=== PATIENT | male | born 1960 | race American Indian/Alaskan Native ===

== ENCOUNTER 2019-08-02 18:26 | Emergency (ER) | payer SELFPAY ==
--- NOTE | 2019-08-02 18:40 | Event Note ---
ED Screening Note Date of service: 08/02/19 Time: 18:38 ED Screening Note: 58 y o male presents to ed cc of toe pain s/p tire fell on toe yesterday This initial assessment/diagnostic orders/clinical plan/treatment(s) is/are subject to change based on patients health status, clinical progression and re- assessment by fellow clinical providers in the ED. Further treatment and workup at subsequent clinical providers discretion. Patient/guardian urged not to elope from the ED as their condition may be serious if not clinically assessed and managed. Initial orders include: xr toes
--- NOTE | 2019-08-02 19:39 | XRay Report ---
RIGHT TOES 3 VIEWS. INDICATION / CLINICAL INFORMATION: pain and swelling OF RT FOOT 2ND DIGIT COMPARISON: None available. FINDINGS: BONES / JOINT(S): Advanced DJD first metatarsophalangeal joint with associated hallux valgus. Mild er osion is also present raising the possibility of gout. The metatarsals are intact. Chronic boutonnier e type deformities of the digits limits evaluation. No gross fracture. SOFT TISSUES: No significant abnormality. ADDITIONAL FINDINGS: None. Signer Name: Isaac Jackson MD Signed: 08/02/2019 7:34 PM Workstation Name: [id number] [id number]
--- NOTE | 2019-08-02 20:51 | Emergency Department Report ---
ED Lower Extremity HPI - General Chief Complaint: Extremity Injury, Lower Stated Complaint: RT FOOT PAIN Time Seen by Provider: 08/02/19 20:43 Source: patient Mode of arrival: Ambulatory Limitations: No Limitations - History of Present Illness Initial Comments: Patient is 58 years old male with no significant past medical history. Patient presented to the ER complaining of right second toe pain since yesterday. Patient stated that a tire fell on his foot yesterday. Patient denied any other injuries. No fever or chills. MD Complaint: foot injury -: Last night Injury: Toes: Right Type of Injury: blunt Place: home Severity: moderate Severity scale (0 -10): 5 - Related Data Allergies Allergy/AdvReac Type Severity Reaction Status Date / Time No Known Allergies Allergy Unverified 08/02/19 18:29 ED Review of Systems ROS: Stated complaint: RT FOOT PAIN Other details as noted in HPI Comment: All other systems reviewed and negative Constitutional: denies: chills, fever Respiratory: denies: cough, shortness of breath Gastrointestinal: denies: abdominal pain, nausea Musculoskeletal: denies: back pain Neurological: denies: headache, weakness, numbness, paresthesias, confusion, abnormal gait ED Past Medical Hx - Past Medical History Previous Medical History?: Yes Additional medical history: Right inquinal hernia - Surgical History Past Surgical History?: Yes Additional Surgical History: Right inquinal hernia repair - Social History Smoking Status: Former Smoker Substance Use Type: Alcohol ED Physical Exam - General Limitations: No Limitations General appearance: alert, in no apparent distress - Head Head exam: Present: atraumatic, normocephalic, normal inspection - Eye Eye exam: Present: normal appearance - ENT ENT exam: Present: normal exam, normal orophraynx, mucous membranes moist - Neck Neck exam: Present: normal inspection, full ROM. Absent: tenderness, meningismus - Respiratory Respiratory exam: Present: normal lung sounds bilaterally - Cardiovascular Cardiovascular Exam: Present: regular rate, normal rhythm, normal heart sounds - GI/Abdominal GI/Abdominal exam: Present: soft. Absent: distended, tenderness, guarding, rebo und, rigid - Expanded Lower Extremity Exam Right Foot/Toe exam: Present: tenderness, swelling, ecchymosis, erythema. Absent: abrasion, laceration, deformity, crepidus, dislocation, nail avulsion Neuro vascular tendon exam: Present: no vascular compromise. Absent: motor deficit, sensory deficit, tendon deficit Gait: Positive: observed and limited by pain - Neurological Exam Neurological exam: Present: alert, oriented X3, CN II-XII intact - Psychiatric Psychiatric exam: Present: normal mood - Skin Skin exam: Present: warm ED Course Vital Signs 08/02/19 18:29 Temperature 97.9 F Pulse Rate 96 H Respiratory 20 Rate Blood Pressure 104/64 O2 Sat by Pulse 96 Oximetry ED Lower Extremity MDM - Radiology Data Radiology results: report reviewed - Medical Decision Making Patient is 58 years old male with no significant past medical history. Patient presented to the ER complaining of right second toe pain since yesterday. Patient stated that a tire fell on his foot yesterday. Patient denied any other injuries. No fever or chills. Toe x-ray is negative for acute finding. No fracture or dislocation. Patient given prescription for tramadol, Zofran and Keflex and advised to follow up with his primary care physician in the next 2-3 days and to return to the ER if symptoms are not improved. Critical care attestation.: If time is entered above; I have spent that time in minutes in the direct care of this critically ill patient, excluding procedure time. ED Disposition Clinical Impression: Contusion, toe, Cellulitis Disposition: - TO HOME OR SELFCARE Is pt being admited?: No Condition: Stable Instructions: Foot Contusion (ED) Referrals: [facility] [Provider Group] - 3-5 Days
[2019-08-02 21:28] VITALS: BP 106/74
== END 2019-08-02 21:26 | disposition home or self-care (01) ==
LOC: ED 18:26
DX: S90.121A Contusion of right lesser toe(s) without damage to nail, initial encounter (principal); L03.031 Cellulitis of right toe; Z87.891 Personal history of nicotine dependence; W22.8XXA Striking against or struck by other objects, initial encounter; Y93.89 Activity, other specified; Y92.89 Other specified places as the place of occurrence of the external cause; Y99.8 Other external cause status